=== PATIENT | female | born 1965 | race Caucasian/White ===

== ENCOUNTER 2019-09-25 22:29 | Emergency (ER) | payer OTHER ==
[~2019-09-25] VITALS: Ht 160 cm; Wt 72.6 kg
[2019-09-25] MEDS ORDERED: SYNTHROID88 MCG (22:40)
[2019-09-25] MEDS ORDERED: EVISTA60 MG (22:40)
[2019-09-25] MEDS ORDERED: OMEPRAZOLE40 MG (22:40)
[2019-09-26] MEDS ORDERED: OSEL75CA PO (02:51)
[2019-09-26] MEDS ORDERED: ZYNCOF 20-400120 ML PO (02:51)
== END 2019-09-26 03:31 | disposition home or self-care (01) ==
LOC: ER
DX: J11.1 Influenza due to unidentified influenza virus with other respiratory manifestations (principal); R50.9 Fever, unspecified